=== PATIENT | female | born 1995 ===

== ENCOUNTER 2018-01-11 18:50 | Emergency (ER) | payer MEDICAID, OTHER ==
[~2018-01-11] VITALS: Ht 170.2 cm; Wt 84.5 kg
[2018-01-11 18:57] VITALS: BP 113/75
[2018-01-11] MEDS ORDERED: IBUPROFEN 200 MG TABLET PO ONE (19:30)
[2018-01-11] MEDS ORDERED: IBUPROFEN 200 MG TABLET ONE (19:35)
== END 2018-01-11 20:06 | disposition home or self-care (01) ==
LOC: ED 19:50
DX: S63.283A Dislocation of proximal interphalangeal joint of left middle finger, initial encounter (principal); S63.633A Sprain of interphalangeal joint of left middle finger, initial encounter; W19.XXXA Unspecified fall, initial encounter; Y93.89 Activity, other specified; Y99.8 Other external cause status; Y92.410 Unspecified street and highway as the place of occurrence of the external cause
CPT/HCPCS: 26770; 29130; 99284